=== PATIENT | male | born 1975 | race American Indian/Alaskan Native ===

== ENCOUNTER 2017-04-25 03:09 | Emergency (ER) | payer OTHER ==
[2017-04-25] MEDS ORDERED: ULTRAM PO ONE (05:55)
[2017-04-25] MEDS ORDERED: ULTRAM ONE (05:56)
[2017-04-25] MEDS ORDERED: TORADOL IM ONE (07:18)
--- NOTE | 2017-04-25 07:26 | Emergency Department Report ---
ED Lower Extremity HPI - General Chief Complaint: Extremity Injury, Lower Stated Complaint: L LEG INJURY Time Seen by Provider: 04/25/17 07:08 Source: patient Mode of arrival: Ambulatory Limitations: No Limitations - History of Present Illness Initial Comments: This is a 42-year-old male nontoxic, well nourished in appearance, no acute signs of distress presents to the ED complaining of chronic left knee pain. Patient stated 4 years ago he had surgery that was placed plate and screws. Patient that he follow up with his orthopedic doctor 3 weeks ago and had swelling to the region and had a fluid aspiration to the left knee. Patient denies any new trauma to the region. Patient received cortisone shot to the left knee joint which stated symptoms have subsided but developed again the past 2 days. He denies any joint swelling, joint redness, fever, chills, nausea , vomiting, numbness, tingling, chest pain, shortness of breath, headache or stiff neck. He denies any new trauma to the region. Patient stated pain is aching a level of 7 out of 10. Patient stated that he did take [place] 10 mg that was prescribed by his orthopedic doctor but he ran out and is requesting for pain control. Patient stated he went to [facility] pharmacy and receive Tylenol arthritis which had minimal relief of pain. Patient denies any allergies. Denies Past medical history. MD Complaint: knee injury -: Gradual, year(s) Injury: Knee: Left Severity scale (0 -10): 7 Improves With: other (Granbury and Tylenol arthritis) Worsens With: nothing Associated Symptoms: able to partially bear weight, ambulatory. denies: snap/ pop sensation, swelling, numbness, tingling, unable to bear weight - Related Data Previous Rx's Medication Instructions Recorded Last Taken Type Cyclobenzaprine [Flexeril] 10 mg PO TID PRN #12 tablet 03/26/13 Unknown Rx traMADol [Ultram] 50 mg PO Q4HR PRN #20 tablet 03/26/13 Unknown Rx traMADol [Ultram] 50 mg PO Q6HR PRN #12 tablet 04/25/17 Unknown Rx Allergies Allergy/AdvReac Type Severity Reaction Status Date / Time No Known Allergies Allergy Verified 04/25/17 05:54 ED Review of Systems ROS: Stated complaint: L LEG INJURY Other details as noted in HPI Constitutional: denies: chills, fever Eyes: denies: eye pain, eye discharge, vision change ENT: denies: ear pain, throat pain Respiratory: denies: cough, shortness of breath, wheezing Cardiovascular: denies: chest pain, palpitations Endocrine: no symptoms reported Gastrointestinal: denies: abdominal pain, nausea, diarrhea Genitourinary: denies: urgency, dysuria Musculoskeletal: denies: back pain, joint swelling, arthralgia Skin: denies: rash, lesions Neurological: denies: headache, weakness, paresthesias Psychiatric: denies: anxiety, depression Hematological/Lymphatic: denies: easy bleeding, easy bruising ED Past Medical Hx - Past Medical History Previous Medical History?: No Additional medical history: left leg fracture - Surgical History Past Surgical History?: Yes Additional Surgical History: surgery to left leg - Social History Smoking Status: Current Every Day Smoker Substance Use Type: Alcohol - Medications Home Medications: Home Medications Medication Instructions Recorded Confirmed Last Taken Type Cyclobenzaprine [Flexeril] 10 mg PO TID PRN #12 tablet 03/26/13 Unknown Rx traMADol [Ultram] 50 mg PO Q4HR PRN #20 tablet 03/26/13 Unknown Rx traMADol [Ultram] 50 mg PO Q6HR PRN #12 tablet 04/25/17 Unknown Rx ED Physical Exam - General Limitations: No Limitations General appearance: alert, in no apparent distress - Head Head exam: Present: atraumatic, normocephalic - Eye Eye exam: Present: normal appearance, PERRL, EOMI. Absent: scleral icterus, conjunctival injection, nystagmus, periorbital swelling, periorbital tenderness Pupils: Present: normal accommodation - ENT ENT exam: Present: normal exam, normal orophraynx, mucous membranes moist, TM's normal bilaterally, normal external ear exam - Neck Neck exam: Present: normal inspection, full ROM. Absent: tenderness, meningismus, lymphadenopathy, thyromegaly - Respiratory Respiratory exam: Present: normal lung sounds bilaterally. Absent: respiratory distress, wheezes, rales, rhonchi, stridor, chest wall tenderness, accessory muscle use, decreased breath sounds, prolonged expiratory - Cardiovascular Cardiovascular Exam: Present: regular rate, normal rhythm, normal heart sounds. Absent: bradycardia, tachycardia, irregular rhythm, systolic murmur, diastolic murmur, rubs, gallop - GI/Abdominal GI/Abdominal exam: Present: soft, normal bowel sounds. Absent: distended, tenderness, guarding, rebound, rigid, diminished bowel sounds - Rectal Rectal exam: Present: deferred - Extremities Exam Extremities exam: Present: normal inspection, full ROM, tenderness, normal capillary refill. Absent: pedal edema, joint swelling, calf tenderness - Expanded Lower Extremity Exam Left Hip exam: Present: normal inspection, full ROM, external rotation, internal rotation, pelvic stability. Absent: tenderness, swelling, abrasion, shortening Upper Leg exam: Present: normal inspection, full ROM. Absent: tenderness, swelling Knee exam: Present: normal inspection, full ROM, tenderness, full knee extension. Absent: swelling, abrasion, laceration, ecchymosis, deformity, crepidus, dislocation, erythema, effusion, pain w/ pronation/supination, posterior draw sign, pain/laxity with valgus, pain/laxity with varus Lower Leg exam: Present: normal inspection, full ROM. Absent: tenderness, swelling, Erica's sign Ankle exam: Present: normal inspection, full ROM. Absent: tenderness, swelling Foot/Toe exam: Present: normal inspection, full ROM. Absent: tenderness, swelling, abrasion Neuro vascular tendon exam: Present: no vascular compromise. Absent: pulse deficit, abnormal cap refill, tendon deficit, extremity cold to touch Gait: Positive: observed and normal - Back Exam Back exam: Present: normal inspection, full ROM. Absent: tenderness, CVA tenderness (R), CVA tenderness (L), muscle spasm, paraspinal tenderness, vertebral tenderness, rash noted - Neurological Exam Neurological exam: Present: alert, oriented X3, CN II-XII intact, normal gait, reflexes normal - Psychiatric Psychiatric exam: Present: normal affect, normal mood - Skin Skin exam: Present: warm, dry, intact, normal color. Absent: rash ED Course Vital Signs 04/25/17 03:12 Temperature 98.1 F Pulse Rate 82 Blood Pressure 122/87 O2 Sat by Pulse 100 Oximetry - Reevaluation(s) Reevaluation #1: 04/25/17 07:28 Patient is speaking in full sentences with no signs of distress noted. ED Lower Extremity MDM - Medical Decision Making This is a 42-year-old male that presents with chronic left knee pain. Patient is requesting for pain management. Patient denies any new trauma to the region. I obtained [place] [employer] and patient only received one Granbury in 2016 by his orthopedic doctor. I will treat patient with Ultram and refer patient to follow back with his orthopedic doctor and given referral for pain management. Patient received Ultram prior to my interview and then Toradol 30 mg IM in the ED. Patient stated pain has significantly decreased. Patient's fiance is currently at the bedside and instructed patient that he may not drive after discharge due to drowsiness and sedation of Ultram. Patient also received a knee immobilizer to the region. He was instructed to rest, elevate and ice extremity. Patient is stable. There is no acute findings of any abnormalities or any signs of cellulitis. At time time of discharge, the patient does not seem toxic or ill in appearance. No acute signs of distress noted. Patient agrees to discharge treatment plan of care. No further questions noted by the patient. Critical care attestation.: If time is entered above; I have spent that time in minutes in the direct care of this critically ill patient, excluding procedure time. ED Disposition Clinical Impression: Chronic knee pain Qualifiers: Laterality: left Qualified Code(s): M25.562 - Pain in left knee; G89.29 - Other chronic pain; G89.29 - Other chronic pain Disposition: DC- TO HOME OR SELFCARE Is pt being admited?: No Does the pt Need Aspirin: No Condition: Stable Instructions: Knee Pain (ED), Knee Immobilizer (ED), RICE Therapy (ED), Tramadol (By mouth) Additional Instructions: Follow-up with the orthopedic doctor/pain management control in 3-5 days or if symptoms worsen or Continue return to emergency room as soon as possible. Rest, elevate, ice extremity. Do not operate any machinery while taking Ultram due to sedation/drowsiness. Prescriptions: traMADol [Ultram] 50 mg PO Q6HR PRN #12 tablet PRN Reason: Pain Referrals: PRIMARY CARE, [Primary Care Provider] - 3-5 Days GUS JONES MD [Staff Physician] - 3-5 Days GERMAN MENSAH MD [Staff Physician] - 3-5 Days AFSANEH STEWARD MD [Staff Physician] - 3-5 Days [facility] [Outside] - 3-5 Days Forms: Work/School Release Form(ED)
[2017-04-25 08:01] VITALS: BP 124/86
== END 2017-04-25 08:00 | disposition home or self-care (01) ==
LOC: ED 03:09
DX: M25.562 Pain in left knee (principal); G89.29 Other chronic pain; F17.200 Nicotine dependence, unspecified, uncomplicated
CPT/HCPCS: 96372; 99282; J1885

== ENCOUNTER 2020-10-30 07:08 | Emergency (ER) | payer SELFPAY ==
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
[2020-10-30 07:50] VITALS: BP 118/79
--- NOTE | 2020-10-30 08:18 | Cat Scan Report ---
CT HEAD WITHOUT CONTRAST INDICATION : Left head injury with loss of consciousness. TECHNIQUE: Axial, coronal and sagittal CT imaging was performed from the skull apex through the skul l base without contrast. All CT scans at this location are performed using CT dose reduction for ALA RA by means of automated exposure control. COMPARISON: None available. FINDINGS: PARENCHYMA: No mass, midline shift, hemorrhage, extraaxial collection or acute territorial infarctio n. VENTRICLES: Symmetric and normal in size. SOFT TISSUES: Mild edema is seen superiorly and laterally along the left orbital region. No other si gnificant abnormality of the included soft tissues/orbits. BONES: No acute osseous abnormality. SINUSES: No significant abnormality. ADDITIONAL FINDINGS: None. IMPRESSION: 1. No acute intracranial abnormality. 2. Mild left periorbital soft tissue edema. Signer Name: Kendell العلي MD Signed: 10/30/2020 8:14 AM Workstation Name: [id number]
== END 2020-10-30 09:19 | disposition home or self-care (01) ==
LOC: ED 07:08
DX: S01.111A Laceration without foreign body of right eyelid and periocular area, initial encounter (principal); S09.90XA Unspecified injury of head, initial encounter; F17.200 Nicotine dependence, unspecified, uncomplicated; Z79.899 Other long term (current) drug therapy; Z98.890 Other specified postprocedural states; X58.XXXA Exposure to other specified factors, initial encounter; Y93.89 Activity, other specified; Y92.89 Other specified places as the place of occurrence of the external cause; Y99.8 Other external cause status
CPT/HCPCS: 70450

== ENCOUNTER 2021-06-29 05:17 | Emergency (ER) | payer OTHER ==
[2021-06-29 05:20] VITALS: BP 140/91
--- NOTE | 2021-06-29 07:45 | XRay Report ---
CHEST 2 VIEWS INDICATION: chest pain, cough. COMPARISON: none FINDINGS: Support devices: None. Heart: Within normal limits. Lungs/pleura: No acute air space or interstitial disease. No pleural abnormality or pneumothorax. Additional findings: Mild scoliosis IMPRESSION: No acute findings. Signer Name: Curtis Rangel Jr, MD Signed: 06/29/2021 7:40 AM Workstation Name: [id number]
[2021-06-29 08:51] LABS: Amphetamine Screen,Urine Negative; Benzodiazepines Screen,Urine Negative; Cannabinoid Screen,Urine Negative; Methadone Screen,Urine Negative; Opiate Screen,Urine Negative
[2021-06-29 09:30] LABS: Cocaine Screen,Urine Positive
[2021-06-29 09:58] LABS: Basophils # (Auto) 0.2 K/mm3 (0.0-0.1); Basophils % (Auto) 2.3 % (0.0-1.8); Eosinophils % (Auto) 0.7 % (0.0-4.3); Hematocrit 38.2 % (35.5-45.6); Hemoglobin 12.4 gm/dl (11.8-15.2); Mean Corpuscular HGB Conc 32 % (32-34); Mean Corpuscular Volume 92 fl (84-94); Monocytes # (Auto) 0.6 K/mm3 (0.0-0.8); Monocytes % (Auto) 8.4 % (0.0-7.3); Platelet Count 295 K/mm3 (140-440); Red Blood Count 4.14 M/mm3 (3.65-5.03); Red Cell Distribution Width 13.5 % (13.2-15.2)
[2021-06-29 10:14] LABS: Alanine Aminotransferase 33 units/L (7-56); Albumin 4.4 g/dL (3.9-5); Blood Urea Nitrogen 9 mg/dL (9-20); Calcium 9.6 mg/dL (8.4-10.2); Hemolysis Index 27
--- NOTE | 2021-06-29 10:16 | Emergency Department Report ---
ED Chest Pain HPI - General Chief Complaint: Chest Pain Stated Complaint: CHEST PAIN Time Seen by Provider: 06/29/21 10:07 Source: patient Mode of arrival: Ambulatory Limitations: No Limitations - History of Present Illness MD Complaint: chest pain -: Gradual Onset: associated with drug use, other Pain Location: other Pain Radiation: none Severity scale (0 -10): 4 Quality: aching Consistency: intermittent Context: recent illness Other Symptoms: cough - Related Data Previous Rx's Medication Instructions Recorded Last Taken Type Cyclobenzaprine [Flexeril] 10 mg PO TID PRN #12 tablet 03/26/13 Unknown Rx traMADoL [Ultram] 50 mg PO Q4HR PRN #20 tablet 03/26/13 Unknown Rx traMADoL [Ultram] 50 mg PO Q6HR PRN #12 tablet 04/25/17 Unknown Rx Naproxen 500 mg PO BID #20 tablet 10/30/20 Unknown Rx Allergies Allergy/AdvReac Type Severity Reaction Status Date / Time No Known Allergies Allergy Verified 06/29/21 05:18 Heart Score - HEART Score History: Slightly suspicious EKG: Normal Age: < 45 Risk factors: 1-2 risk factors Troponin: < normal limit HEART Score: 1 - EKG Read Time Time EKG Completed: 11:39 EKG Read Time: 11:39 - Critical Actions Critical Actions: 0-3 pts:0.9-1.7%risk of adverse cardiac event.Candidate for discharge ED Review of Systems ROS: Stated complaint: CHEST PAIN Other details as noted in HPI Constitutional: denies: chills, fever Eyes: denies: eye pain, eye discharge, vision change ENT: denies: ear pain, throat pain Respiratory: cough. denies: shortness of breath, wheezing Cardiovascular: denies: chest pain, palpitations Endocrine: no symptoms reported Gastrointestinal: denies: abdominal pain, nausea, diarrhea Genitourinary: denies: urgency, dysuria Musculoskeletal: denies: back pain, joint swelling, arthralgia Skin: denies: rash, lesions Neurological: denies: headache, weakness, paresthesias Psychiatric: denies: anxiety, depression Hematological/Lymphatic: denies: easy bleeding, easy bruising ED Past Medical Hx - Past Medical History Hx Hypertension: Yes Additional medical history: left leg fracture, Drug use - Surgical History Additional Surgical History: surgery to left leg - Social History Smoking Status: Former Smoker - Medications Home Medications: Home Medications Medication Instructions Recorded Confirmed Last Taken Type Cyclobenzaprine [Flexeril] 10 mg PO TID PRN #12 tablet 03/26/13 Unknown Rx traMADoL [Ultram] 50 mg PO Q4HR PRN #20 tablet 03/26/13 Unknown Rx traMADoL [Ultram] 50 mg PO Q6HR PRN #12 tablet 04/25/17 Unknown Rx Naproxen 500 mg PO BID #20 tablet 10/30/20 Unknown Rx ED Physical Exam - General Limitations: No Limitations General appearance: alert, in no apparent distress - Head Head exam: Present: atraumatic, normocephalic - Eye Eye exam: Present: normal appearance - ENT ENT exam: Present: mucous membranes moist - Neck Neck exam: Present: normal inspection - Respiratory Respiratory exam: Present: normal lung sounds bilaterally. Absent: respiratory distress - Cardiovascular Cardiovascular Exam: Present: regular rate, normal rhythm. Absent: systolic murmur, diastolic murmur, rubs, gallop - GI/Abdominal GI/Abdominal exam: Present: soft, normal bowel sounds - Rectal Rectal exam: Present: deferred - Extremities Exam Extremities exam: Present: normal inspection - Back Exam Back exam: Present: normal inspection - Neurological Exam Neurological exam: Present: alert, oriented X3 - Psychiatric Psychiatric exam: Present: normal affect, normal mood - Skin Skin exam: Present: warm, dry, intact, normal color. Absent: rash ED Course Vital Signs 06/29/21 06/29/21 05:18 08:31 Temperature 99 F Pulse Rate 86 Respiratory 17 Rate Blood Pressure 140/91 [Right] O2 Sat by Pulse 100 100 Oximetry - Reevaluation(s) Reevaluation #1: 06/29/21 11:38 x ray neg , vss cocoaine noted negative trop, seems like cough related chest pain ED Medical Decision Making - Lab Data Result diagrams: 06/29/21 09:38 06/29/21 09:38 - EKG Data -: EKG Interpreted by Me EKG shows normal: sinus rhythm Rate: normal - EKG Data Interpretation: no acute changes - Radiology Data Radiology results: report reviewed, image reviewed Critical care attestation.: If time is entered above; I have spent that time in minutes in the direct care of this critically ill patient, excluding procedure time. ED Disposition Clinical Impression: Bronchitis, Cough Disposition: 01 HOME / SELF CARE / HOMELESS Is pt being admited?: No Does the pt Need Aspirin: Yes Condition: Stable Instructions: Chronic Bronchitis (ED), Upper Respiratory Infection, Adult, [id number] Referrals: RACQUEL CARR MD [Primary Care Provider] - 3-5 Days
[2021-06-29 10:23] LABS: BUN/Creatinine Ratio 13
[2021-06-29] MEDS ORDERED: ASPIRIN 325 MG TAB PO ONE (11:40)
--- NOTE | 2021-07-01 12:50 | Electrocardiograph Report ---
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
== END 2021-06-29 11:46 | disposition home or self-care (01) ==
LOC: ED 05:17
DX: J40 Bronchitis, not specified as acute or chronic (principal); I10 Essential (primary) hypertension; Z98.890 Other specified postprocedural states; Z87.891 Personal history of nicotine dependence; Z79.899 Other long term (current) drug therapy
CPT/HCPCS: 36415; 71046; 80053; 80307; 84484; 85025; 93005; 99284